=== PATIENT | male | born 1975 | race Caucasian/White ===

== ENCOUNTER 2016-10-29 07:20 | Emergency (ER) | payer OTHER ==
[~2016-10-29] VITALS: Ht 175.3 cm; Wt 122.4 kg
[2016-10-29 07:22] VITALS: Ht 175.3 cm; Wt 122.4 kg
[2016-10-29] MEDS ORDERED: CLINDAMYCIN 600 MG/54 ML D5W IV ONE (07:45)
[2016-10-29] MEDS ORDERED: OPTIRAY 320 IV PRN (08:00)
[2016-10-29 08:16] LABS: BASO % 0.1 %; BASO ABS # 0.01 K/uL (0-0.2); COMPLETE YES; EOS % 0.5 %; HEMATOCRIT 47.7 % (42-52); IG% 0.4 %; LYMPH % 10.7 %; LYMPH ABS # 1.21 K/uL (1.2-3.4); MEAN CELL VOLUME 84.1 fL (80-100); MEAN CORPUSCULAR HGB CONC 35.6 g/dl (32-36); MEAN PLATELET VOLUME 8.8 fL (7.4-10.4); MONO % 5.4 %; NEUT % 82.9 %; PLATELET COUNT 229 K/uL (130-400); RED BLOOD COUNT 5.67 M/uL (4.7-6.1); WHITE BLOOD COUNT 11.27 K/uL (4.8-10.8)
[2016-10-29] MEDS ORDERED: CLINDAMYCIN IV 600 MG in DEXTROSE 5% ADD-VANTAGE 50ML 50 ML IV ONE (08:30)
[2016-10-29 08:39] LABS: BUN/CREATININE RATIO 13.2 (10-20); CALCIUM 9.6 mg/dl (8.5-10.1); CREATININE 0.87 mg/dl (0.60-1.40); POTASSIUM 4.1 mmol/L (3.5-5.1)
--- NOTE | 2016-10-29 09:34 | DIAGNOSTIC IMAGING REPORT ---
CT FACIAL-MAXILLOFACIAL WITH CT DOSE: 702.03 mGycm CLINICAL HISTORY: Right maxillary swelling TECHNIQUE: The patient was scanned in a dynamic helical fashion during intravenous administration of 93 cc of Optiray 320. COMPARISON STUDY: None. FINDINGS: The visualized portions of the intracranial contents are unremarkable. No orbital masses are visualized. No salivary gland masses are visualized. Visualized portions of thyroid are unremarkable in appearance. There is no pathologic cervical lymphadenopathy. There is right-sided premaxillary soft tissue edema. There is mild mucosal thickening within the right maxillary sinus. There is no severe airway compromise. There are no fluid collections to indicate a soft tissue abscess. There is poor dentition with multiple dental caries and multiple dental apical abscesses IMPRESSION: 1. Poor dilatation with multiple dental caries and multiple dental apical abscesses 2. Right-sided premaxillary soft tissue edema 3. No evidence of soft tissue abscess 4. No evidence of airway compromise Electronically signed by: Daniel Gonzalez M.D. 10/29/2016 9:32 AM Dictated Date/Time: 10/29/2016 9:26 AM
[2016-10-29] MEDS ORDERED: AMOX875T PO (09:53)
--- NOTE | 2016-10-29 09:54 | EMERGENCY ROOM VISIT NOTE ---
History First contact with patient: 07:28 Chief Complaint: FACIAL PAIN/INJURY Stated Complaint: SWOLLEN FACE History of Present Illness The patient is a 41 year old male who presents to the Emergency Room with complaints of right facial pain and swelling which she just noticed this morning. The patient denies any fever or chills. The patient was in here before the holidays and he was told he had a periapical abscess due to his poor dentition. The patient currently does not have any tooth pain. He has not seen a dentist since his last ER visit for the same symptoms. The patient does admit to recent head congestion and sinus pressure. He states it started around New Year's. He also had a sore throat but that has resolved. The patient denies any ear pain, cough or chest pain. Past Medical/Surgical History Medical Problems: (1) No significant past medical history Surgical Problems: (1) No history of previous surgery Family History FH: cancer FH: diabetes mellitus FH: gallbladder disease FH: heart disease FH: hypertension FH: lung disease Social History Smoking Status: Current Every Day Smoker Alcohol Use: none Marital Status: Housing Status: lives with family Occupation Status: employed Current/Historical Medications No Active Prescriptions or Reported Meds Allergies Coded Allergies: No Known Allergies (Unverified , 10/29/16) Physical Exam Vital Signs Date Time Temp Pulse Resp B/P Pulse Ox O2 Delivery O2 Flow Rate FiO2 10/29/16 07:22 36.9 102 18 148/93 97 Room Air Physical Exam PHYSICAL EXAM: Vital Signs were reviewed: Temperature 36.9, blood pressure 148/ 93, pulse 102, respiratory rate 18 Reviewed Nurse's notes and agree. Oxygen saturation is 97 % on room air which is normal . GENERAL: 41-year-old white male appears in no acute distress. MENTAL STATUS: Alert, oriented, coherent. EARS: Canals clear. TMs good light reflex, no erythema or fluid level noted. NOSE: Nasal mucosa with moderate erythema engorgement. PHARYNX: Moderate erythema, no edema noted. No exudate noted. Airway is adequate. NECK: Supple, non-tender. No lymphadenopathy noted. FACE: There is an indurated area over the right maxillary region which is tender to palpation. There is erythema over this specific area. The remainder of the face is nontender. MOUTH: Poor dentition noted throughout. There is no tenderness to percussion on the decayed teeth on the right upper jaw. Gingiva without erythema or edema or any palpable abscesses. LUNGS: Clear to auscultation without wheezes rales or rhonchi. CARDIAC: Regular rate and rhythm without murmur. Medical Decision & Procedures ER Provider Diagnostic Interpretation: CT FACIAL-MAXILLOFACIAL WITH CT DOSE: 702.03 mGycm CLINICAL HISTORY: Right maxillary swelling TECHNIQUE: The patient was scanned in a dynamic helical fashion during intravenous administration of 93 cc of Optiray 320. COMPARISON STUDY: None. FINDINGS: The visualized portions of the intracranial contents are unremarkable. No orbital masses are visualized. No salivary gland masses are visualized. Visualized portions of thyroid are unremarkable in appearance. There is no pathologic cervical lymphadenopathy. There is right-sided premaxillary soft tissue edema. There is mild mucosal thickening within the right maxillary sinus. There is no severe airway compromise. There are no fluid collections to indicate a soft tissue abscess. There is poor dentition with multiple dental caries and multiple dental apical abscesses IMPRESSION: 1. Poor dilatation with multiple dental caries and multiple dental apical abscesses 2. Right-sided premaxillary soft tissue edema 3. No evidence of soft tissue abscess 4. No evidence of airway compromise Electronically signed by: Daneil Gonzalez M.D. 10/29/2016 9:32 AM Laboratory Results 10/29/16 08:00 Red Blood Count 5.67, Mean Corpuscular Volume 84.1, Mean Corpuscular Hemoglobin 30.0, Mean Corpuscular Hemoglobin Concent 35.6, Mean Platelet Volume 8.8, Neutrophils (%) (Auto) 82.9, Lymphocytes (%) (Auto) 10.7, Monocytes (%) (Auto) 5.4, Eosinophils (%) (Auto) 0.5, Basophils (%) (Auto) 0.1, Neutrophils # (Auto) 9.34, Lymphocytes # (Auto) 1.21, Monocytes # (Auto) 0.61, Eosinophils # (Auto) 0.06, Basophils # (Auto) 0.01 10/29/16 08:00 Test 10/29/16 08:00 White Blood Count 11.27 K/uL (4.8-10.8) Red Blood Count 5.67 M/uL (4.7-6.1) Hemoglobin 17.0 g/dL (14.0-18.0) Hematocrit 47.7 % (42-52) Mean Corpuscular Volume 84.1 fL (80-100) Mean Corpuscular Hemoglobin 30.0 pg (25-34) Mean Corpuscular Hemoglobin Concent 35.6 g/dl (32-36) Platelet Count 229 K/uL (130-400) Mean Platelet Volume 8.8 fL (7.4-10.4) Neutrophils (%) (Auto) 82.9 % Lymphocytes (%) (Auto) 10.7 % Monocytes (%) (Auto) 5.4 % Eosinophils (%) (Auto) 0.5 % Basophils (%) (Auto) 0.1 % Neutrophils # (Auto) 9.34 K/uL (1.4-6.5) Lymphocytes # (Auto) 1.21 K/uL (1.2-3.4) Monocytes # (Auto) 0.61 K/uL (0.11-0.59) Eosinophils # (Auto) 0.06 K/uL (0-0.5) Basophils # (Auto) 0.01 K/uL (0-0.2) RDW Standard Deviation 37.7 fL (36.4-46.3) RDW Coefficient of Variation 12.5 % (11.5-14.5) Immature Granulocyte % (Auto) 0.4 % Immature Granulocyte # (Auto) 0.04 K/uL (0.00-0.02) Anion Gap 12.0 mmol/L (3-11) Est Creatinine Clear Calc Drug Dose 144.5 ml/min Estimated GFR () 124.2 Estimated GFR (Non- 107.2 BUN/Creatinine Ratio 13.2 (10-20) Calcium Level 9.6 mg/dl (8.5-10.1) Medications Administered Medications (Trade) Dose Ordered Sig/Mat Route Start Time Stop Time Status Last Admin Dose Admin Clindamycin Phosphate/Dextrose (Cleocin Iv/ Dextrose Add-[place] 50ML) 54 ml @ 108 mls/hr NOW ONCE IV 10/29/16 08:30 10/29/16 08:59 DC 10/29/16 08:33 108 MLS/HR ED Course The patient was evaluated. IV access was obtained. CBC and differential renal profile was ordered. The patient was given Cleocin [address] of the face with IV contrast was ordered and interpreted by the radiologist as above with multiple chronic periapical abscesses and some soft tissue edema noted over the right maxillary sinus but no. Orbital cellulitis.. The patient was offered pain medication but declined. The patient was informed of the CTs findings and discharged to home in stable condition. Medical Decision Differential diagnosis include periapical abscess, facial cellulitis, periorbital cellulitis, maxillary sinus abscess Impression Primary Impression: Periapical abscess Additional Impression: Facial swelling Departure Information Dispostion Home / Self-Care Condition GOOD Prescriptions Amoxicillin & Pot Clavulanate (Augmentin 875-125 mg) 1 Tab Tab 1 TAB PO BID for 10 Days, #20 TAB Prov: Chanelle Renee PA-C 10/29/16 Referrals No Doctor, Assigned (PCP) Patient Instructions A [employer], [employer] Additional Instructions Ibuprofen 600 mg every 6 hours with food for pain and swelling. Take Augmentin as prescribed. Appointment with a dentist as soon as possible for definitive care. If you have any increased facial swelling that goes around her eye, increased redness, fever return to ER immediately.
[2016-10-29 10:05] VITALS: BP 143/79; PULSE 73; TEMP 36.9; O2SAT 97
== END 2016-10-29 10:06 | disposition home or self-care (01) ==
LOC: C.EDB 07:21
DX: K04.7 Periapical abscess without sinus (principal); R22.0 Localized swelling, mass and lump, head; K02.9 Dental caries, unspecified; Z80.9 Family history of malignant neoplasm, unspecified; Z83.3 Family history of diabetes mellitus; Z82.49 Family history of ischemic heart disease and other diseases of the circulatory system; Z83.79 Family history of other diseases of the digestive system; Z83.6 Family history of other diseases of the respiratory system; F17.210 Nicotine dependence, cigarettes, uncomplicated